=== PATIENT | female | born 1995 | race Two or more races ===

== ENCOUNTER 2017-07-09 21:04 | Emergency (ER) | payer MEDICAID ==
[~2017-07-09] VITALS: Ht 149.9 cm; Wt 61.9 kg
[2017-07-09 21:06] VITALS: BP 124/88
[2017-07-09] MEDS ORDERED: ONDANSETRON ODT 4 MG ONE (21:28)
[2017-07-09] MEDS ORDERED: ONDANSETRON ODT 4 MG PO ONE (21:30)
[2017-07-09 21:44] LABS: HCG UR LOT HCG706132
[2017-07-09 21:53] LABS: HCG UR OBC PASS
== END 2017-07-09 22:51 | disposition home or self-care (01) ==
LOC: ED 22:45
DX: S06.0X0A Concussion without loss of consciousness, initial encounter (principal); W19.XXXA Unspecified fall, initial encounter; Y93.89 Activity, other specified; Y92.009 Unspecified place in unspecified non-institutional (private) residence as the place of occurrence of the external cause; Y99.9 Unspecified external cause status
CPT/HCPCS: 70450; 72125; 81025; 99285; Q0162; 99284